=== PATIENT | male | born 1980 | race Caucasian/White ===

== ENCOUNTER 2023-05-06 12:52 | Emergency (ER) | payer SELFPAY ==
[2023-05-06] VITALS (7 sets, daily range): BP systolic 134–183; BP diastolic 84–108; PULSE 88–110; RESP 11–18; TEMP 36.8; O2SAT 94–99
--- NOTE | ~2023-05-06 | XR_ITS ---
EXAMINATION: XR chest 1V portable INDICATION: Shortness of breath TECHNIQUE: Portable AP chest at 1337 hours COMPARISON: None available FINDINGS: There are minimal airspace opacities in the right lower lung zone. No pleural effusion or p neumothorax. The cardiomediastinal silhouette is normal. IMPRESSION: 1. Minimal airspace opacities in the right lower lung zone, consistent with atelectasis versus pneumo deja. Reviewed, dictated and finalized at location F. FIELD OPERATOR IMPRESSION: 1. Minimal airspace opacities in the right lower lung zone, consistent with ate lectasis versus pneumonia.
--- NOTE | 2023-05-06 12:54 | ECG_ITS ---
Measurements Intervals [place] Rate: 108 P: 49 NM: 150 QRS: 66 QRSD: 100 T: 42 QT: 305 QTc: 410 Interpretive Statements SINUS TACHYCARDIA BASELINE WANDER- III, AVR, AVL, AVF, V1 ABNORMAL ECG NO PREVIOUS ECG AVAILABLE FOR COMPARISON Electronically Signed On 05-06-2023 16:11:13 MATERIALS SCIENTIST by Vic Campa D.O.
[2023-05-06 13:12] LABS: Basophils Absolute Auto 0.1 K/mm3 (0.0-0.1); Basophils Percent Auto 0.7 % (0.2-1.2); Eosinophils Absolute Auto 0.2 K/mm3 (0-0.3); Eosinophils Percent Auto 2.5 % (0-4.4); Hematocrit 51.8 % (42.0-52.0); Hemoglobin 16.9 g/dL (14.0-18.0); Immature Granulocyte Absolute 0.01 K/mm3 (0.00-0.031); Immature Granulocyte Percent A 0.1 % (0-0.5); Lymphocytes Absolute Auto 1.97 K/mm3 (0.9-3.2); Lymphocytes Percent Auto 27.4 % (18.3-44.2); Mean Corpuscular HGB Conc 32.6 g/dl (32-36); Mean Corpuscular Volume 88.9 fl (80-100); Mean Platelet Volume 8.9 fl (7.4-10.4); Monocytes Absolute Auto 0.8 K/mm3 (0.1-0.6); Monocytes Percent Auto 11.7 % (2.6-8.5); Neutrophils Absolute Auto 4.2 K/mm3 (1.3-6.7); Neutrophils Percent Auto 57.6 % (45.5-73.1); Platelet Count Result 260 k/mm3 (150-375); Red Blood Count 5.83 M/mm3 (4.6-6.20); Red Cell Distribution Width 14.4 % (11.5-14.5); White Blood Count 7.2 K/mm3 (4.5-10.0)
[2023-05-06 13:24] LABS: Alanine Aminotransferase 17 U/L (6-50); Albumin Level 4.1 g/dL (3.5-5.1); Alkaline Phosphatase 90 U/L (38-126); Anion Gap 13 mmol/L (8-16); Aspartate Amino Transferase 24 U/L (17-59); Bilirubin,Total 1.1 mg/dL (0.2-1.3); Blood Urea Nitrogen 17 mg/dL (9-20); Carbon Dioxide 19 mmol/L (22-30); Chloride 107 mmol/L (98-107); Estimated CRCL calculation 127 ml/min; Estimated Glomerular Filt Rate > 60; Glucose 101 mg/dL (65-110); Potassium 3.7 mmol/L (3.4-5.0); Sodium 139 mmol/L (137-145)
--- NOTE | 2023-05-06 13:50 | ED.SOB ---
HPI - SOB/Dyspnea General Chief Complaint: Shortness of Breath/Dyspnea Stated Complaint: cough x 1 month, SOB Time Seen by Provider: 05/06/23 13:49 Source: patient Mode of arrival: ambulatory Limitations: no limitations History of Present Illness HPI Narrative: 42 yo male p/w SOB. He has had a dry cough x1 month. Non bloody. He went to an urgent care 1 month ago and was covid/flu negative. He also endorses chest pain, like heart burn. No fevers but hot flashes. He slept 15 hours yesterday which is why he presents today. not sick but has 4 grandkids in day care. No underlying respiratory or cardiac issues. Related Data Allergies Allergy/AdvReac Type Severity Reaction Status Date / Time codeine Allergy Difficulty Verified 05/06/23 13:50 Breathing PMFSH Social History Social History (Updated 05/07/23 @ 03:48 by Angella Albert MD) Social History: Has 4 grandkids Living arrangements: with family Additional living arrangements comments: Exam Narrative: GENERAL: Well-appearing, well-nourished, and in no acute distress. HEAD: Normocephalic, atraumatic. EYES: Non injected, non icteric ENT: Nares clear, no rhinorrhea or epistaxis. NECK: Supple. CHEST: Clear to auscultation. No respiratory distress. HEART: Tachycardic rate and rhythm. . ABDOMEN: Soft, nondistended. EXTREMITIES: Normal range of motion. No lower extremity edema. SKIN: Warm, dry, no rash. NEURO: No focal deficits. Alert and oriented x3. PSYCH: Normal mood and affect. Course Vital Signs Vital signs: Vital Signs Temperature 98.3 F 05/06/23 12:53 Pulse Rate 110 H 05/06/23 12:53 Respiratory Rate 18 05/06/23 12:53 Blood Pressure 183/106 H 05/06/23 12:53 Pulse Oximetry 97 05/06/23 12:53 Oxygen Delivery Room Air 05/06/23 12:53 Temperature 98.3 F 05/06/23 12:53 Pulse Rate 88 05/06/23 16:11 Respiratory Rate 16 05/06/23 16:11 Blood Pressure 141/84 H 05/06/23 16:11 Pulse Oximetry 99 05/06/23 16:11 Oxygen Delivery Room Air 05/06/23 12:53 MDM - SOB/Dyspnea MDM Narrative Medical decision making narrative: 42yo presents with 1 month SOB and cough. No fevers but hot flashes. In the ED he is initially tachycardic and hypertensive. Evidence of pNA on CXR. CURB-65 score Confusion (No 0, Yes +1): 0 BUN >19mg/dl (No 0, Yes +1): 0 RR >/= 30 (No 0, Yes +1): 0 SBP <90mmHg or DBP </=60mmHg (No 0, Yes +1): 0 Age >/=65 (No 0, Yes +1): 0 Result = 0 points, low risk group, 0.6% 30 day mortality Recommend outpatient treatment Probable simple pneumonia DRIP Score - predicts risk for CAP d/t drug-resistant pathogens Antibiotic use within 60 days (No 0, Yes +2): 0 terminal worker care resident (No 0, Yes +2): 0 Tube feeding (No 0, Yes +2): 0 Prior drug-resistant pneumonia Dx within 1 year (No 0, Yes +2) 0 Hospitalization within 60 days (No 0, Yes +1): 0 Chronic pulmonary disease (No 0, Yes +1): 0 Poor functional status (No 0, Yes +1): 0 H2 snow or PPI within 14 days (No 0, Yes +1): 0 Active wound care at time of admission (No 0, Yes +1): 0 MRSA colonization within 1 year (No 0, Yes +1): 0 Total: 0 Outpatient score ,4 prescribe doxycycline. Stable for discharge Differential Diagnosis Differential diagnosis: Likely community acquired pneumonia, pulmonary embolism and other (ACS; acute viral syndrome) Lab Data Attestation: I reviewed the patient's lab results. Lab results narrative: No leukocytosis, anemia, thrombocytopenia. Normal renal function. Normal trop, dimer, and viral panel. 05/06/23 13:06 05/06/23 13:06 Labs: Lab Results 05/06/23 05/06/23 Range/Units 13:06 14:14 WBC 7.2 (4.5-10.0) K/mm3 RBC 5.83 (4.6-6.20) M/mm3 Hgb 16.9 (14.0-18.0) g/dL Hct 51.8 (42.0-52.0) % MCV 88.9 (80-100) fl MCH 29.0 (26-34) pg MCHC 32.6 (32-36) g/dl RDW 14.4 (11.5-14.5) % Plt Count 260 (150-375) k/mm3 MPV 8.9 (7.
[2023-05-06 14:35] LABS: Troponin I < 0.012 ng/mL (0.000-0.034)
[2023-05-06 14:53] LABS: Influenza A QL RT-PCR Negative (Negative); Influenza B QL RT-PCR Negative (Negative); RSV RNA, RT-PCR Negative (Negative); SARS-CoV-2 RNA PCR Negative (Negative)
[2023-05-06 15:10] LABS: D Dimer 0.29 ug/mL (<0.48)
[2023-05-06] MEDS: DOXYCYCLINE HYCLATE 100 MG TABLET PO (16:03)
== END 2023-05-06 16:11 | disposition home or self-care (01) ==
PROVIDERS: Emergency Medicine; Emergency Provider Student in an Organized Health Care Education/Training Program
DX: J18.9 Pneumonia, unspecified organism (principal); Z20.822 Contact with and (suspected) exposure to COVID-19; R00.0 Tachycardia, unspecified
CPT/HCPCS: 36415; 71045; 80053; 84484; 85025; 85380; 87637; 93005; 99284; A9270